=== PATIENT | male | born 1975 | race African-American/Black ===

== ENCOUNTER 2018-11-15 18:42 | Emergency (ER) | payer SELFPAY ==
[~2018-11-15] VITALS: Ht 185.4 cm; Wt 90.9 kg
[2018-11-15 18:44] VITALS: BP 156/37
[2018-11-15] MEDS ORDERED: ACETAMINOPHEN 500 MG TABLET PO ONE (21:15)
[2018-11-15] MEDS ORDERED: MUPIROCIN CALCIUM 2% 22 GM OINTMENT TP ONE (21:15)
[2018-11-15] MEDS ORDERED: POVIDONE-IODINE 10% 15 ML SOLUTION UD TP ONE (21:15)
[2018-11-15] MEDS ORDERED: PERTUSS(ACELL),DIPH,TET VAC/PF 0.5 ML VIAL IM ONE (21:15)
== END 2018-11-15 22:19 | disposition home or self-care (01) ==
LOC: EMS 18:43
DX: S61.402A Unspecified open wound of left hand, initial encounter (principal); S61.401A Unspecified open wound of right hand, initial encounter; L98.9 Disorder of the skin and subcutaneous tissue, unspecified; X58.XXXA Exposure to other specified factors, initial encounter; Y93.89 Activity, other specified; Y92.89 Other specified places as the place of occurrence of the external cause; Y99.8 Other external cause status
CPT/HCPCS: 90471; 90715

== ENCOUNTER 2020-12-02 13:12 | Emergency (ER) | payer OTHER ==
[~2020-12-02] VITALS: Ht 185.4 cm; Wt 100.0 kg
[2020-12-02] MEDS ORDERED: HYDROCODONE/ACETAMINOPHEN 5-325 MG TABLET PO ONE (14:45)
[2020-12-02 15:45] VITALS: BP 142/97
== END 2020-12-02 16:25 | disposition home or self-care (01) ==
LOC: EMS 13:16
DX: M25.521 Pain in right elbow (principal)
CPT/HCPCS: 99283